=== PATIENT | male | born 1955 ===

== ENCOUNTER 2019-10-22 08:00 | Outpatient (CLI) | payer BC, OTHER ==
--- NOTE | 2019-10-22 18:17 | XRAY Report ---
PROCEDURE: Toe(s) RT INDICATIONS: CRUSHING INJURY TO RIGHT GREAT TOE TECHNIQUE: 3 views of the first toe(s) acquired. COMPARISON: None FINDINGS: Bones: Minimally displaced fracture involving lateral aspect of first distal phalangeal tuft/distal s haft is seen. No other fracture or dislocation. No suspicious bony lesions. Soft tissues: No suspicious soft tissue densities. IMPRESSION: Minimally displaced fracture involving lateral aspect of first distal phalangeal tuft as above. Reviewed by: Rufus Givens MD on 10/22/2019 6:15 PM PDT Approved by: Rufus Givens MD on 10/22/2019 6:15 PM PDT Station ID: [id number]
== END 2019-10-22 23:59 | disposition home or self-care (01) ==
LOC: DI.S 08:00
PROVIDERS: ATTEND Physician Assistant
DX: S97.111A Crushing injury of right great toe, initial encounter (principal); S92.421A Displaced fracture of distal phalanx of right great toe, initial encounter for closed fracture
CPT/HCPCS: 73660